=== PATIENT | male | born 1985 | race Caucasian/White ===

== ENCOUNTER 2019-12-07 06:30 | Observation (INO) | payer MEDICARE, OTHER ==
[~2019-12-07] VITALS: Ht 172.7 cm; Wt 135.2 kg
[~2019-12-07 06:30] MED LIST: CYMBALTA60 MG PO; FLAX SEED OIL1 EACH PO; FLUOXETINE HCL20 MG; HYDROCHLOROTH12.5 MG; HYDROCHLOROTH12.5 MG PO; LACTASE3000 UNIT PO; LASIX40 MG; LISINOPRIL10 MG; LOPERAMIDE2 M1 PO; MELATONIN10 M2 PO; NEURONTIN400 MG PO; POTASSIUM CHLO20 ME1; PROPRANOLOL HCL40 MG PO; RISPERDAL1 MG PO; TRAZODONE HCL100 MG PO; ZESTRIL20 MG PO; ZOFRAN ODT4 MG PO
[2019-12-07] MEDS ORDERED: PROPRANOLOL HCL20 MG PO ×2 (18:12)
[2019-12-07] MEDS ORDERED: ZOLPIDEM TARTRAT5 MG PO (18:13)
[2019-12-07] MEDS ORDERED: VITAMIN D21250 MCG PO (18:14)
[2019-12-07] MEDS ORDERED: IMITREX50 MG PO (18:19)
[2019-12-08] MEDS ORDERED: TYLENOL EXTRA500 MG PO (11:02)
[2019-12-08] MEDS ORDERED: MOTRIN IB200 MG PO (11:03)
--- NOTE | 2019-12-08 11:23 | OR ---
[facility] [address] [place], [place] [address] Signed DATE OF OPERATION: 12/07/2019 SURGEON: Silvana Kirkpatrick MD PREOPERATIVE DIAGNOSES: 1. Chronic calculous cholecystitis. 2. Morbid obesity. 3. Mental deficiency. POSTOPERATIVE DIAGNOSES: 1. Chronic calculous cholecystitis. 2. Morbid obesity. 3. Mental deficiency. 4. Profound intra-abdominal fatty tissue and omental adhesions precluding laparoscopic approach. 5. Extremely fatty liver. PROCEDURE: 1. Laparoscopy with conversion to open cholecystectomy, prolonged, complicated, difficult. 2. Intraoperative cholangiogram. 3. Surgeon-directed fluoroscopy. 4. Liver biopsy. ANESTHESIA: General endotracheal; Ashlie Pinedo CRNA. INDICATIONS: This morbidly obese 34-year-old white man has underlying developmental delay. He is quite markedly obese. He has been having symptoms highly suggestive of biliary disease and a gallbladder ultrasound performed showed gallstones. He is a patient of LUDMILA Rhoades. He is admitted at this time to undergo cholecystectomy preferably by laparoscopic approach. He understands, to the limit he can, and his mother completely, the risks of bleeding, infection, bile duct injury, need for open procedure and other unforeseen complications. Understanding this, he wished to proceed. FINDINGS: He has a very thick abdominal wall pannus, even more so was intra-abdominal fat including omentum. The liver was markedly fatty infiltrated. Although, pneumoperitoneum could be achieved, the abdomen was extremely crowded with plethoric Electronically Signed By: SILVANA KIRKPATRICK MD 12/08/19 1123 PATIENT NAME: FREYA PETERSEN OPERATIVE REPORT DATE OF : 89 REPORT #: [id number] PHYSICIAN: SILVANA KIRKPATRICK MD PCP: DAVID HICKS REPORT IS CONFIDENTIAL AND NOT TO BE RELEASED WITHOUT AUTHORIZATION [facility] [address] [place], [place] [address] Signed omentum and an enlarged fatty liver. The dense omental adhesions to the anterior abdominal wall precluded safe progression in cholecystectomy and on that basis, conversion to open operation was required. The gallbladder itself was densely scarred to surrounding omental tissue. The gallbladder once excised was noted to have the contours of the gallbladder conforming to the gallstones within. Complete cholecystectomy was performed. The cystic duct was rather small. The cholangiogram showed no sign of filling defect or other abnormality. A drain was placed on the basis of extensive dissection. Given his markedly infiltrated fatty liver, a core biopsy of the medial segment of left lobe of the liver was undertaken so as to ascertain if he in fact has nonalcoholic fatty liver related hepatitis. DESCRIPTION OF PROCEDURE: The patient was brought to the operating room and with extreme care and caution and using a glide scope, he was safely intubated, given general endotracheal anesthesia. He has rather low pulmonary reserve as manifested by prompt desaturations even with intubation. The abdomen was clipped and prepared with chlorhexidine solution and draped sterilely. An infraumbilical incision was made. Entry to the abdominal wall was undertaken. It was rather deep. The infraumbilical fascia was identified and incised and ultimately the peritoneal cavity entered. There was no sign of ascites. Using a Sultana cannula technique, pneumoperitoneum was achieved to a level of 14 mmHg with carbon dioxide gas. Intra-abdominal inspection showed a sea of omental adhesions, some of them adherent to the anterior abdominal wall. A window was created to allow for visualization of the upper abdomen and abdominal wall. The liver was quite markedly enlarged and fatty infiltrated. An epigastric port was placed under direct visualization allowing for some manipulation of the omental adhesions. They were densely adherent to the abdominal wall and into the undersurface of the liver. A right-sided 5 mm trocar was placed with two-hand manipulation and lysis of omental adhesions was undertaken. It became clear that the gallbladder was "socked in" and omental adhesions precluded any meaningful and reasonable exposure for further dissection. On that basis, conversion open operation was deemed necessary. The trocars were removed. The infraumbilical fascial incision was reapproximated with interrupted 0 Vicryl suture as well as a running 0 PDS suture. The skin was later closed. A right subcostal incision was made in the standard way dividing the thick abdominal wall pannus and the anterior rectus sheath and the underlying rectus abdominis muscles. The peritoneum and attended posterior sheath were quite markedly thickened. These were incised as well. A Bookwalter retractor was affixed to the table with the extension arms due to his significant obesity. With dissection, omental adhesions could be taken down revealing a somewhat gallbladder with chronic inflammation, conforming to cholecystic stones. With various manipulations, the adhesions of the Electronically Signed By: SILVANA KIRKPATRICK MD 12/08/19 1123 PATIENT NAME: FREYA PETERSEN OPERATIVE REPORT DATE OF : 89 REPORT #: [id number] PHYSICIAN: SILVANA KIRKPATRICK MD PCP: DAVID HICKS REPORT IS CONFIDENTIAL AND NOT TO BE RELEASED WITHOUT AUTHORIZATION [address] [address] Signed gallbladder were taken down more fully, particularly in the region of the duodenum. The Bookwalter attachments were used to provide exposure. A ring clamp was applied to the apex of the gallbladder. The peritoneum was incised and dissection was undertaken anteriorly and posteriorly. Entry into the gallbladder was noted at one point, allowing for extraction of large stones. The posterior wall of the gallbladder was dissected free from the liver. Some oozing in the deepest portion of the liver capsule with dissection was managed by packing with gauze and later with Gel-Foam segment and some Wen. Once the gallbladder was dissected free from the liver bed itself, the cystic artery could be well identified. Some clips were applied to the cystic arterial branches. The gallbladder was passed off the table, opened on the back table and found to have chronic inflammatory change and subacute inflammation as well as multiple stones of varying size and consistency. Using a cholangiocatheter, intraoperative cholangiography was undertaken with surgeon directed fluoroscopy. Free flow of contrast was noted into the biliary tree with prompt emptying into the duodenum. Biliary anatomy was conventional. There was no sign of filling defect or other abnormality. The cystic duct was triply clipped and divided. The gallbladder bed was irrigated and found to be generally hemostatic. The area of decapsulation of liver was reasonably hemostatic, but Gel-Foam and Wen was applied nevertheless. Through a separate stab incision, a 7 mm flat Davie drain was placed in the subhepatic space. There was no sign of bile leak or ongoing bleeding. Attention was then turned towards the liver biopsy. The liver, which was markedly fatty infiltrated with a rounded and blunted liver edge was biopsied with a single pass of a 14-gauge biopsy gun device. Hemostasis was assured with electrocautery and a small amount of Wen as well. Plans were made for closure. The posterior sheath and its attendant peritoneum were reapproximated with running #1 PDS suture. The muscular layer was irrigated. The anterior rectus sheath was closed with 0 PDS suture as well. All wounds were copiously irrigated with saline solution and skin in each area closed with Vicryl suture. Steri-Strips were applied. A silver sponge dressing was applied to the subcostal incision. The drain was applied to bulb suction. The patient was ultimately extubated without problem, taken to recovery room in good condition having suffered no complications. Sponge, needle, and instrument counts were reported as correct x3. The operation was prolonged, complicated, and difficult lasting nearly 3 hours, certainly three times longer than usual. Silvana Kirkpatrick MD /MODL Electronically Signed By: SILVANA KIRKPATRICK MD 12/08/19 1123 PATIENT NAME: FREYA PETERSEN OPERATIVE REPORT DATE OF : 89 REPORT #: [id number] PHYSICIAN: SILVANA KIRKPATRICK MD PCP: DAVID HICKS REPORT IS CONFIDENTIAL AND NOT TO BE RELEASED WITHOUT AUTHORIZATION [address] [address] Signed /[id number] cc: LUDMILA Jade Copies: DAVID HICKS ~ Electronically Signed By: SILVANA KIRKPATRICK MD 12/08/19 1123 PATIENT NAME: FREYA PETERSEN OPERATIVE REPORT DATE OF : 89 REPORT #: [id number] PHYSICIAN: SILVANA KIRKPATRICK MD PCP: DAVID HICKS REPORT IS CONFIDENTIAL AND NOT TO BE RELEASED WITHOUT AUTHORIZATION
--- NOTE | 2019-12-13 16:05 | PATH ---
[facility] [address] [place], [place] [address] Signed SPECIMEN(S): A GALLBLADDER SPECIMEN(S): B LIVER NEEDLE BIOPSY SPECIMEN SOURCE: A. GALLBLADDER B. LIVER NEEDLE BIOPSY CLINICAL HISTORY: Gallstones, sludge, abnormal LFTs. Liver biopsy. FINAL PATHOLOGIC DIAGNOSIS: A. Gallbladder, cholecystectomy: - Mild to moderate chronic cholecystitis. - Cholelithiasis. B. Liver, needle biopsy: - Mild to moderate steatosis. - Negative for significant inflammation and fibrosis. - No features present to suggest steatohepatitis. - Negative for malignancy. COMMENT: As part of [employer] quality engineer medical device program specimen B was reviewed by Batsheva Ceron MD, board certified pathologist with board certification in gastrointestinal pathology. LJA:vlg:C2NR MICROSCOPIC EXAMINATION: Special stains for Tri-chrome, reticulin, PAS with diastase, and iron are obtained along with appropriately positive controls. Iron stain is negative. PAS stain is negative for the presence of F-100 antitrypsin globules. Reticulin stain shows normal hepatocellular cytoarchitecture. Tri-chrome stain shows essentially no fibrosis. LJA:vlg GROSS DESCRIPTION: Two specimens are received in two containers, labeled "AR." A. The specimen, labeled "AR," and designated on the requisition "gallbladder and stones," is received in formalin and consists of Specimen: Disrupted gallbladder. Dimensions: 7.1 x 3.1 x 1.8 cm. PATIENT NAME: FREYA PETERSEN PATHOLOGY DATE OF : 89 REPORT #: [id number] PHYSICIAN: MARVIN ALARCON PCP: DAVID HICKS REPORT IS CONFIDENTIAL AND NOT TO BE RELEASED WITHOUT AUTHORIZATION [facility] [address] [place], [place] [address] Signed Serosa: Brown-snyder to hemorrhagic and irregular. Cystic Duct: Unobstructed. Calculi: One brown-snyder ovoid calculus (1.8 x 1.6 x 1.6 cm). Mucosa: Red-snyder and velvety. Wall thickness: 0.5 cm. Lymph node: No pericystic lymph nodes are grossly identified. Additional: None. Content Production Specialist sections are submitted in cassette (A1). B. The specimen, labeled "AR," and designated on the requisition "liver biopsy," is received in formalin and consists of one core of brown-snyder tissue (1.6 cm in length by 0.1 cm in diameter). The tissue is inked black and the specimen is submitted entirely in cassette (B1). AC (under the direct supervision of a pathologist) The Gross Description was prepared using a voice recognition system. The report was reviewed for accuracy; however, sound-alike word errors, addition and/or deletions may occur. If there is any question about this report, please contact Client Services. ADDITIONAL NOTES: Immunohistochemical and/or in situ hybridization studies were performed on this case with the appropriate positive controls that react as expected. This test was developed and its performance characteristics determined by [employer]. It has not been cleared or approved by the U.S. Food and Drug Administration. The FDA has determined that such clearance or approval is not necessary. This test is used for clinical purposes. It should not be regarded as investigational or for research. [employer] is certified under the Clinical Laboratory Improvement Amendments of 1988 (CLIA) as qualified to perform high complexity clinical laboratory testing. PERFORMING LABORATORY: The technical component was performed by [employer], [address] [place] [id number] (Surgery Scheduling Coordinator: Nilsa Ceron MD; CLIA# [id number]). Professional interpretation was performed by [facility], [address] [facility] [place] [address], [place] [address] (CLIA# [id number]). Diagnostician: Pablo Armstrong MD Pathologist Electronically Signed 12/13/2019 PATIENT NAME: FREYA PETERSEN PATHOLOGY DATE OF : 89 REPORT #: [id number] PHYSICIAN: MARVIN PATHOLOGY PCP: DAVID HICKS REPORT IS CONFIDENTIAL AND NOT TO BE RELEASED WITHOUT AUTHORIZATION [facility] [address] [facility] [place], [place] [address] Signed Copies: ~ PATIENT NAME: FREYA PETERSEN PATHOLOGY DATE OF : 89 REPORT #: [id number] PHYSICIAN: MARVIN ALARCON PCP: DAVID HICKS REPORT IS CONFIDENTIAL AND NOT TO BE RELEASED WITHOUT AUTHORIZATION
== END 2019-12-08 12:15 | disposition home or self-care (01) ==
LOC: DS 06:30 → DSVR 11:03 → MS 11:03
PROVIDERS: ADMIT Surgery; ATTEND Surgery
PROC: BF13YZZ Fluoroscopy of Gallbladder and Bile Ducts using Other Contrast (ICD-10-PCS; 2019-12-07)
PROC: 0FB00ZX Excision of Liver, Open Approach, Diagnostic (ICD-10-PCS; 2019-12-07)
PROC: 0FT40ZZ Resection of Gallbladder, Open Approach (ICD-10-PCS; principal; 2019-12-07 06:45)
DX: K80.10 Calculus of gallbladder with chronic cholecystitis without obstruction (principal); K76.0 Fatty (change of) liver, not elsewhere classified; K66.0 Peritoneal adhesions (postprocedural) (postinfection); E66.01 Morbid (severe) obesity due to excess calories; F79 Unspecified intellectual disabilities; F84.0 Autistic disorder; G47.30 Sleep apnea, unspecified; Z53.31 Laparoscopic surgical procedure converted to open procedure; Z68.37 Body mass index [BMI] 37.0-37.9, adult
CPT/HCPCS: 00790; 74300; 88304; 88307; 88313; 96374; 96375; 96376; G0378; J0131; J0330; J0690; J1100; J1644; J1885; J2001; J2250; J2300; J2405; J2704; J3475; J7121; Q9967